=== PATIENT | male | born 1980 | race Caucasian/White ===

== ENCOUNTER 2017-02-27 05:51 | Emergency (ER) | payer SELFPAY, MEDICAID ==
[2017-02-27] MEDS: LIDOCAINE HCL 1% PF 10 ML VIAL INFIL (06:57)
[2017-02-27] MEDS ORDERED: LIDOCAINE HCL 1% PF 30 ML VIAL INFIL (07:00)
[2017-02-27] MEDS: oxyCODONE/ACETAMINOPHEN 5 MG/325 MG TAB PO (07:13)
[2017-02-27] MEDS: SULFAMETHOXAZOLE-TRIMETHOPRIM DS 800-160 MG TAB PO (07:13)
[2017-02-27] MEDS: IBUPROFEN 600 MG TAB PO (07:14)
[2017-02-27] MEDS: TETANUS/DIPHTHERIA TOXOID ADULT 0.5 ML VIAL IM (07:15)
== END 2017-02-27 07:43 | disposition home or self-care (01) ==
LOC: PHED 05:51
DX: L02.414 Cutaneous abscess of left upper limb (principal); B95.62 Methicillin resistant Staphylococcus aureus infection as the cause of diseases classified elsewhere; Z16.19 Resistance to other specified beta lactam antibiotics; Z16.11 Resistance to penicillins; Z23 Encounter for immunization; Z72.0 Tobacco use
CPT/HCPCS: 10061; 86403; 87070; 87186; 87205; 90471; 90714; 99284-25